=== PATIENT | female | born 1995 | race Caucasian/White ===

== ENCOUNTER 2017-10-17 11:48 | Emergency (ER) | payer OTHER ==
[2017-10-17 12:10] LABS: URINE HCG POC HCG POSITIVE (Negative)
[2017-10-17 12:30] LABS: BILIRUBIN,URINE SMALL (NEG); GLUCOSE,URINE NEGATIVE (NEG); NITRITE,URINE NEGATIVE (NEG); PH,URINE 6.5; PROTEIN,URINE NEGATIVE (NEG-TRACE)
[2017-10-17 12:36] LABS: ADD MAN DIFF? NO
[2017-10-17 12:41] LABS: BASO % 0 % (0-3); EOS % 1 % (0-3); HEMATOCRIT 35.8 % (36.0-47.0); LYMPH # 1.8 x10^3/uL (1.0-4.8); LYMPH % 23 % (24-48); MEAN CORPUSCULAR HEMOGLOBIN 29 pg (25-35); MEAN CORPUSCULAR HGB CONC 34 g/dL (31-37); MEAN CORPUSCULAR VOLUME 87 fL (79-100); MONO % 7 % (0-9); NEUT % 70 % (31-73); PLATELET COUNT 317 x10^3/uL (140-400); RED BLOOD COUNT 4.11 x10^6/uL (3.50-5.40); RED CELL DISTRIBUTION WIDTH 13.4 % (11.5-14.5); WHITE BLOOD COUNT 7.8 x10^3/uL (4.0-11.0)
[2017-10-17 12:43] LABS: BACTERIA,URINE FEW /HPF (0-FEW); SQUAMOUS EPITHELIAL CELL,UR FEW /LPF
[2017-10-17 12:44] LABS: RBC,URINE OCC /HPF (0-2); WBC,URINE OCC /HPF (0-4)
[2017-10-17 12:50] LABS: ANION GAP 8 (6-14); BLOOD UREA NITROGEN 11 mg/dL (7-20); CALCIUM 8.1 mg/dL (8.5-10.1); CARBON DIOXIDE 28 mmol/L (21-32); CHLORIDE 102 mmol/L (98-107); CREATININE 0.5 mg/dL (0.6-1.0); GFR 152.9; GLUCOSE 82 mg/dL (70-99); POTASSIUM 3.2 mmol/L (3.5-5.1); SODIUM 138 mmol/L (136-145)
[2017-10-17] MEDS: POTASSIUM CHLORIDE 20 MEQ TABLET.ER. PO (14:32)
[2017-10-18 16:13] LABS: CHLAMYDIA PROBE Negative (Negative)
== END 2017-10-17 14:54 | disposition home or self-care (01) ==
LOC: ER 11:48
DX: O26.891 Other specified pregnancy related conditions, first trimester (principal); R10.32 Left lower quadrant pain; O99.341 Other mental disorders complicating pregnancy, first trimester; F41.9 Anxiety disorder, unspecified; F32.9 Major depressive disorder, single episode, unspecified; Z3A.11 11 weeks gestation of pregnancy; Z88.5 Allergy status to narcotic agent
CPT/HCPCS: 36415; 76801; 80048; 81001; 81025; 85025; 86900; 86901; 87491; 87591; 99285-25; Q0111

== ENCOUNTER → 2017-12-25 | Outpatient (CLI) | payer OTHER | END | disposition home or self-care (01) | LOC: US 08:06 | DX: O32.1XX0 Maternal care for breech presentation, not applicable or unspecified (principal); O26.842 Uterine size-date discrepancy, second trimester; Z3A.21 21 weeks gestation of pregnancy | CPT/HCPCS: 76805 ==

== ENCOUNTER 2018-04-15 20:28 | Inpatient (IN) | payer OTHER ==
[2018-04-15 21:10] LABS: BILIRUBIN,URINE MODERATE (NEG); CLARITY,URINE CLEAR; COLOR,URINE ORANGE; GLUCOSE,URINE 100 mg/dL (NEG); NITRITE,URINE NEGATIVE (NEG); PROTEIN,URINE 30 mg/dL (NEG-TRACE)
[2018-04-15 21:15] LABS: BACTERIA,URINE MANY /HPF (0-FEW); SQUAMOUS EPITHELIAL CELL,UR MANY /LPF
[2018-04-15 21:32] LABS: AMPHETAMINE/METHAMPHETAMINE NEG (NEG); BARBITURATES NEG (NEG); BENZODIAZEPINES NEG (NEG); CANNABINOIDS NEG (NEG); COCAINE NEG (NEG); ETHANOL, URINE NEG (NEG); METHADONE NEG (NEG); OPIATES NEG (NEG); PHENCYCLIDINE NEG (NEG)
[2018-04-15] MEDS: fentaNYL PF VIAL 100 MCG/2 ML VIAL IV (22:13)
[2018-04-15] MEDS: IV RINGERS,LACTATED 1000ML 1,000 ML IV ×3 (22:15→23:22)
[2018-04-15] MEDS ORDERED: OXYTOCIN PREMIX 30 UNIT/500 ML BAG. IV (23:00)
[2018-04-15] MEDS ORDERED: LIDOCAINE 1% PF 30 ML VIAL. (23:16)
[2018-04-15] MEDS ORDERED: OXYTOCIN 30 UNIT/500 ML PREMIX 500 ML IV ×2 (23:17→23:30)
[2018-04-15] MEDS ORDERED: LIDOCAINE 1% PF 30 ML VIAL. INJ (23:30)
[2018-04-15] MEDS ORDERED: 0.9 % SODIUM CHLORIDE 10 ML DISP.SYRIN. IV (23:30)
[2018-04-15] MEDS ORDERED: ONDANSETRON PF 4 MG/2 ML VIAL. IV (23:30)
[2018-04-15] MEDS ORDERED: fentaNYL PF VIAL 100 MCG/2 ML VIAL IV (23:30)
[2018-04-15] MEDS ORDERED: IBUPROFEN 800 MG TABLET. PO (23:30)
[2018-04-15] MEDS ORDERED: TERBUTALINE 1 MG/ML VIAL. SQ (23:30)
[2018-04-15 23:45] LABS: ADD MAN DIFF? NO
[2018-04-15 23:47] LABS: BASO # 0.1 x10^3/uL (0.0-0.2); BASO % 1 % (0-3); EOS % 0 % (0-3); HEMATOCRIT 28.1 % (36.0-47.0); HEMOGLOBIN 9.2 g/dL (12.0-15.5); LYMPH # 1.9 x10^3/uL (1.0-4.8); LYMPH % 18 % (24-48); MEAN CORPUSCULAR HEMOGLOBIN 22 pg (25-35); MEAN CORPUSCULAR HGB CONC 33 g/dL (31-37); MEAN CORPUSCULAR VOLUME 68 fL (79-100); MONO # 0.7 x10^3/uL (0.0-1.1); MONO % 7 % (0-9); NEUT # 7.7 x10^3uL (1.8-7.7); NEUT % 74 % (31-73); PLATELET COUNT 263 x10^3/uL (140-400); RED BLOOD COUNT 4.13 x10^6/uL (3.50-5.40); RED CELL DISTRIBUTION WIDTH 17.5 % (11.5-14.5); WHITE BLOOD COUNT 10.4 x10^3/uL (4.0-11.0)
[2018-04-16] MEDS: PENICILLIN G K 5,000,000 UNIT in IV NORMAL SALINE 100ML 100 ML IV
[2018-04-16] MEDS ORDERED: 0.9 % SODIUM CHLORIDE 10 ML DISP.SYRIN. IV (00:15)
[2018-04-16] MEDS ORDERED: MMR per PROTOCOL. MC (00:15)
[2018-04-16] MEDS ORDERED: PHENYLEPH/MINERAL OIL/PETROLAT RECTAL OINTMENT 28GM TUBE. RC (00:15)
[2018-04-16] MEDS ORDERED: SIMETHICONE 80 MG TAB.CHEW PO (00:15)
[2018-04-16] MEDS ORDERED: ACETAMINOPHEN 325 MG TABLET. PO (00:15)
[2018-04-16] MEDS ORDERED: MAGNESIUM HYDROXIDE 2,400 MG/30 ML ORAL.SUSP. PO (00:15)
[2018-04-16] MEDS ORDERED: OXYTOCIN 30 UNIT/500 ML PREMIX 500 ML IV (00:15)
[2018-04-16] MEDS ORDERED: ZOLPIDEM 5 MG TABLET. PO (00:15)
[2018-04-16] MEDS ORDERED: diphenhydrAMINE HCL 25 MG CAPSULE PO (00:15)
[2018-04-16] MEDS ORDERED: HYDROCORTISONE 1% TOPICAL OINTMENT 30GM TUBE. TP (00:15)
[2018-04-16] MEDS ORDERED: MAG HYDROX/ALUMINUM HYD/SIMETH 30 ML ORAL.SUSP PO (00:15)
[2018-04-16] MEDS: FUROSEMIDE 20 MG TABLET PO ×2 (01:05→12:26)
[2018-04-16] MEDS: BENZOCAINE 20% TOPICAL AEROSOL SPRAY 57GM CAN. TP (01:28)
[2018-04-16] MEDS: IBUPROFEN 800 MG TABLET. PO ×2 (01:28→14:20)
[2018-04-16 03:50] LABS: ANISOCYTOSIS SLIGHT; HYPOCHROMIA MARKED; MICROCYTOSIS SLIGHT; PLT ESTIMATE ADEQUATE (ADEQUATE); POLYCHROMASIA SLIGHT
[2018-04-16] MEDS: IV RINGERS,LACTATED 1000ML 1,000 ML IV ×3 (06:00→23:19)
[2018-04-16] MEDS: DOCUSATE SODIUM 100 MG CAPSULE. PO ×2 (08:36→20:37)
[2018-04-16 18:30] LABS: ANION GAP 6 (6-14); BLOOD UREA NITROGEN 9 mg/dL (7-20); CALCIUM 8.1 mg/dL (8.5-10.1); CARBON DIOXIDE 27 mmol/L (21-32); CHLORIDE 107 mmol/L (98-107); CREATININE 0.7 mg/dL (0.6-1.0); GFR 102.8; GLUCOSE 114 mg/dL (70-99); POTASSIUM 4.1 mmol/L (3.5-5.1); SODIUM 140 mmol/L (136-145)
[2018-04-16] MEDS: DULoxetine HCL 30 MG CAPSULE.DR PO (20:37)
[2018-04-17] MEDS: IBUPROFEN 800 MG TABLET. PO (02:12)
[2018-04-17 04:57] LABS: ADD MAN DIFF? NO
[2018-04-17 04:58] LABS: BASO # 0.1 x10^3/uL (0.0-0.2); BASO % 1 % (0-3); EOS # 0.1 x10^3/uL (0.0-0.7); EOS % 1 % (0-3); HEMATOCRIT 27.1 % (36.0-47.0); HEMOGLOBIN 8.7 g/dL (12.0-15.5); LYMPH % 23 % (24-48); MEAN CORPUSCULAR HEMOGLOBIN 22 pg (25-35); MEAN CORPUSCULAR HGB CONC 32 g/dL (31-37); MEAN CORPUSCULAR VOLUME 70 fL (79-100); MONO # 0.7 x10^3/uL (0.0-1.1); MONO % 8 % (0-9); NEUT # 5.8 x10^3uL (1.8-7.7); NEUT % 67 % (31-73); PLATELET COUNT 234 x10^3/uL (140-400); RED BLOOD COUNT 3.87 x10^6/uL (3.50-5.40); RED CELL DISTRIBUTION WIDTH 17.1 % (11.5-14.5); WHITE BLOOD COUNT 8.7 x10^3/uL (4.0-11.0)
[2018-04-17] MEDS: FERROUS SULFATE 325 MG TABLET. PO ×2 (08:40→17:39)
[2018-04-17] MEDS: DOCUSATE SODIUM 100 MG CAPSULE. PO (08:40)
[2018-04-17] MEDS: FUROSEMIDE 20 MG TABLET PO (12:41)
[2018-04-17] MEDS: DIPHTH,PERTUSS(ACELL),TET TOX 0.5 ML DISP.SYRIN. VAX IM (17:44)
== END 2018-04-17 18:32 | disposition home or self-care (01) | DRG 775 ==
LOC: 3 SO LND 20:28 → 3 NORTH 04-16 02:15
PROC: 10E0XZZ Delivery of Products of Conception, External Approach (ICD-10-PCS; principal; 2018-04-15)
DX: O69.81X0 Labor and delivery complicated by cord around neck, without compression, not applicable or unspecified (principal); Z37.0 Single live birth; Z3A.37 37 weeks gestation of pregnancy
CPT/HCPCS: 36415; 76815; 80048; 80307; 81001; 85025; 86592; 87086; 90715; J2590; J3010; J7120

== ENCOUNTER 2019-03-19 13:14 | Inpatient (IN) | payer OTHER ==
[~2019-03-19] VITALS: Ht 162.6 cm; Wt 69.4 kg
[~2019-03-19 13:14] MED LIST: ASCO500T PO; CETI10TA22 PO; CHOL200027 PO; DOCU-109 PO; IBUP-1060 PO; MULT1TAB52 PO; NITR100C62 PO; OXYC1TAB15 PO; PREN1TAB54 PO
[2019-03-19] MEDS ORDERED: fentaNYL PF VIAL 100 MCG/2 ML VIAL IV ONE (14:00)
[2019-03-19] MEDS ORDERED: CLINDAMYCIN 600MG PREMIX 50 ML IV ONE (14:00)
[2019-03-19] MEDS ORDERED: IV NORMAL SALINE 1000ML BAG 1,000 ML IV ONE (14:00)
[2019-03-19] MEDS ORDERED: ONDANSETRON PF 4 MG/2 ML VIAL. IV ONE (14:00)
--- NOTE | 2019-03-19 14:03 | PHYS DOC ---
Past Medical History Past Medical History: Anxiety, Depression, Other Additional Past Medical Histor: CELLULITIS Past Surgical History: Tonsillectomy, Other Additional Past Surgical Histo: Gastric Sleeve Additional Information: 0.5 PPD Alcohol Use: Occasionally Drug Use: None Adult General Chief Complaint Chief Complaint: CELLULITIS HPI HPI Patient is a 23 year old female who presents with redness and swelling of her left forearm. Started on Monday morning when she woke up. She went to an urgent care on Monday when it got worse. They prescribed her Bactrim and gave her a shot of Rocephin. The redness has continued to grow worse and is streaking up her left upper arm. Patient rates her pain as 6 out of 10 and burning. Denies any associated symptoms. She has been icing it at home and has been taking her Bactrim. Review of Systems Review of Systems Constitutional: Denies fever or chills [] Eyes: Denies change in visual acuity, redness, or eye pain [] HENT: Denies nasal congestion or sore throat [] Respiratory: Denies cough or shortness of breath [] Cardiovascular: No additional information not addressed in HPI [] GI: Denies abdominal pain, nausea, vomiting, bloody stools or diarrhea [] : Denies dysuria or hematuria [] Musculoskeletal: Denies back pain or joint pain [] Integument: Denies rash or skin lesions with exception of swelling, erythema, and streaking on her left arm. Neurologic: Denies headache, focal weakness or sensory changes [] Endocrine: Denies polyuria or polydipsia [] Complete systems were reviewed and found to be within normal limits, except as documented in this note. Current Medications Current Medications Current Medications Medications (Trade) Dose Ordered Sig/[place] Start Time Stop Time Status Last Admin Dose Admin Clindamycin Phosphate 50 ml @ 100 mls/hr 1X ONCE 03/19/19 14:00 03/19/19 14:29 DC 03/19/19 14:35 100 MLS/HR Fentanyl Citrate (Fentanyl 2ml Vial) 50 mcg 1X ONCE 03/19/19 14:00 03/19/19 14:01 DC 03/19/19 14:16 50 MCG Ondansetron HCl (Zofran) 4 mg 1X ONCE 03/19/19 14:00 03/19/19 14:01 DC 03/19/19 14:16 4 MG Sodium Chloride 1,000 ml @ 1,000 mls/hr 1X ONCE 03/19/19 14:00 03/19/19 14:59 03/19/19 14:15 1,000 MLS/HR Allergies Allergies Allergies Coded Allergies Type Severity Reaction Last Updated Verified morphine Allergy Mild vomiting 12/15/15 Yes Physical Exam Physical Exam Constitutional: Well developed, well nourished, no acute distress, non-toxic appearance. [] HENT: Normocephalic, atraumatic, bilateral external ears normal, oropharynx moist, no oral exudates, nose normal. [] Eyes: PERRLA, EOMI, conjunctiva normal, no discharge. [] Neck: Normal range of motion, no tenderness, supple, no stridor. [] Cardiovascular:Heart rate regular rhythm, no murmur [] Lungs & Thorax: Bilateral breath sounds clear to auscultation [] Abdomen: Bowel sounds normal, soft, no tenderness, no masses, no pulsatile masses. [] Skin: Warm, dry, no erythema, no rash with exception of area on the upper forearm that is erythematous, hot to touch, and streaking up her upper arm. Back: No tenderness, no CVA tenderness. [] Extremities: No tenderness, no cyanosis, no clubbing, ROM intact, no edema. [] Neurologic: Alert and oriented X 3, normal motor function, normal sensory function, no focal deficits noted. [] Psychologic: Affect normal, judgement normal, mood normal. [] Current Patient Data Vital Signs Vital Signs Date Time Temp Pulse Resp B/P (MAP) Pulse Ox O2 Delivery O2 Flow Rate FiO2 03/19/19 14:16 16 99 Room Air 03/19/19 13:39 98.7 103 144/61 (88) 98.7 Lab Values Laboratory Tests Test 03/19/19 13:55 03/19/19 14:03 Urine Collection Type Unknown Urine Color Yellow Urine Clarity Cloudy Urine pH 7.5 Urine Specific [place] 1.025 Urine Protein 30 mg/dL (NEG-TRACE) Urine Glucose (UA) Negative mg/dL (NEG) Urine Ketones (Stick) Negative mg/dL (NEG) Urine Blood Moderate (NEG) Urine Nitrite Negative (NEG) Urine Bilirubin Negative (NEG) Urine Urobilinogen Dipstick 1.0 mg/dL (0.2 mg/dL) Urine Leukocyte Esterase Negative (NEG) Urine RBC 11-20 /HPF (0-2) Urine WBC Rare /HPF (0-4) Urine Squamous Epithelial Cells Mod /LPF Urine Bacteria Few /HPF (0-FEW) Urine Mucus Marked /LPF White Blood Count 11.1 x10^3/uL (4.0-11.0) H Red Blood Count 5.10 x10^6/uL (3.50-5.40) Hemoglobin 12.7 g/dL (12.0-15.5) Hematocrit 40.1 % (36.0-47.0) Mean Corpuscular Volume 79 fL (79-100) Mean Corpuscular Hemoglobin 25 pg (25-35) Mean Corpuscular Hemoglobin Concent 32 g/dL (31-37) Red Cell Distribution Width 15.7 % (11.5-14.5) H Platelet Count 451 x10^3/uL (140-400) H Neutrophils (%) (Auto) 79 % (31-73) H Lymphocytes (%) (Auto) 12 % (24-48) L Monocytes (%) (Auto) 7 % (0-9) Eosinophils (%) (Auto) 1 % (0-3) Basophils (%) (Auto) 1 % (0-3) Neutrophils # (Auto) 8.8 x10^3uL (1.8-7.7) H Lymphocytes # (Auto) 1.3 x10^3/uL (1.0-4.8) Monocytes # (Auto) 0.8 x10^3/uL (0.0-1.1) Eosinophils # (Auto) 0.1 x10^3/uL (0.0-0.7) Basophils # (Auto) 0.1 x10^3/uL (0.0-0.2) POC Urine HCG, Qualitative Hcg negative (Negative) Sodium Level 142 mmol/L (136-145) Potassium Level 4.2 mmol/L (3.5-5.1) Chloride Level 103 mmol/L (98-107) Carbon Dioxide Level 27 mmol/L (21-32) Anion Gap 12 (6-14) Blood Urea Nitrogen 15 mg/dL (7-20) Creatinine 1.0 mg/dL (0.6-1.0) Estimated GFR (Cockcroft-Gault) 68.1 BUN/Creatinine Ratio 15 (6-20) Glucose Level 92 mg/dL (70-99) Lactic Acid Level 0.9 mmol/L (0.4-2.0) Calcium Level 9.7 mg/dL (8.5-10.1) Total Bilirubin 0.3 mg/dL (0.2-1.0) Aspartate Amino Transferase (AST) 19 U/L (15-37) Alanine Aminotransferase (ALT) 22 U/L (14-59) Alkaline Phosphatase 59 U/L (46-116) Total Protein 7.8 g/dL (6.4-8.2) Albumin 4.1 g/dL (3.4-5.0) Albumin/Globulin Ratio 1.1 (1.0-1.7) Laboratory Tests 03/19/19 14:03 Laboratory Tests 03/19/19 14:03 EKG EKG [] Radiology/Procedures Radiology/Procedures [] Course & Med Decision Making Course & Med Decision Making Pertinent Labs and Imaging studies reviewed. (See chart for details) Patient appears to have Cellulitis that has failed outpatient therapy. Will order Clindamycin, Labs, Pain medication and then admit the patient to the hospital. The patient is agreeable. Talked to Dr. Ibrahim. Will admit to hospital. Dragon Disclaimer Dragon Disclaimer This electronic medical record was generated, in whole or in part, using a voice recognition dictation system. Departure Departure Impression: Primary Impression: Cellulitis Disposition: 09 ADMITTED INPATIENT Admitting Physician: Rupinder Ibrahim Condition: STABLE Referrals: RUMA FELIX Jr, MD (PCP) Problem Qualifiers Primary Impression: Cellulitis Site of cellulitis of extremity: upper extremity Laterality: left DEANNE MEEHAN [employer] HELPER March 19, 2019 14:03
[2019-03-19 14:08] LABS: BILIRUBIN,URINE NEGATIVE (NEG); CLARITY,URINE CLOUDY; COLOR,URINE YELLOW; NITRITE,URINE NEGATIVE (NEG); PH,URINE 7.5; PROTEIN,URINE 30 mg/dL (NEG-TRACE)
[2019-03-19 14:14] LABS: BASO # 0.1 x10^3/uL (0.0-0.2); BASO % 1 % (0-3); EOS # 0.1 x10^3/uL (0.0-0.7); EOS % 1 % (0-3); HEMATOCRIT 40.1 % (36.0-47.0); HEMOGLOBIN 12.7 g/dL (12.0-15.5); LYMPH # 1.3 x10^3/uL (1.0-4.8); LYMPH % 12 % (24-48); MEAN CORPUSCULAR HEMOGLOBIN 25 pg (25-35); MEAN CORPUSCULAR HGB CONC 32 g/dL (31-37); MEAN CORPUSCULAR VOLUME 79 fL (79-100); MONO # 0.8 x10^3/uL (0.0-1.1); MONO % 7 % (0-9); NEUT # 8.8 x10^3uL (1.8-7.7); NEUT % 79 % (31-73); PLATELET COUNT 451 x10^3/uL (140-400); RED CELL DISTRIBUTION WIDTH 15.7 % (11.5-14.5); WHITE BLOOD COUNT 11.1 x10^3/uL (4.0-11.0)
[2019-03-19 14:21] LABS: BACTERIA,URINE FEW /HPF (0-FEW); SQUAMOUS EPITHELIAL CELL,UR MOD /LPF; WBC,URINE RARE /HPF (0-4)
[2019-03-19 14:23] LABS: CALCIUM 9.7 mg/dL (8.5-10.1); GFR 68.1; POTASSIUM 4.2 mmol/L (3.5-5.1)
[2019-03-19 14:29] LABS: ALBUMIN 4.1 g/dL (3.4-5.0); ALBUMIN/GLOBULIN RATIO 1.1 (1.0-1.7); TOTAL BILIRUBIN 0.3 mg/dL (0.2-1.0); TOTAL PROTEIN 7.8 g/dL (6.4-8.2)
[2019-03-19] MEDS ORDERED: ONDANSETRON PF 4 MG/2 ML VIAL. IV PRN (14:45)
[2019-03-19 15:30] VITALS: BP 105/63
[2019-03-19] MEDS: fentaNYL PF VIAL 100 MCG/2 ML VIAL IV PRN ×2 (16:48→21:29)
[2019-03-19] MEDS ORDERED: NON FORMULARY ITEM (Ibuprofen 800 MG) PO PRN (17:15)
[2019-03-19] MEDS ORDERED: DOCUSATE SODIUM 100 MG CAPSULE. PO PRN (17:15)
[2019-03-19] MEDS ORDERED: oxyCODONE/APAP 5/325 1 TAB TABLET PO PRN (17:15)
[2019-03-19] MEDS ORDERED: ALPRAZolam 0.5 MG TABLET PO PRN (18:00)
[2019-03-19 19:00] VITALS: BP 93/46
--- NOTE | 2019-03-19 19:38 | PDOC1 ---
History and Physical Date of Admission Date of Admission DATE: 03/19/19 TIME: 19:33 Source Source: Chart review, Patient History of Present Illness History of Present Illness Ms. Carter, is a 23 year old female admit from ER with acute redness and swelling of her left forearm. 4 days prior she woke up with a small spot on her arm, where she feels like she got a bug bite when sleeping, urgent care on Monday started her on Bactrim - and the pain has gotten worse with swelling and streaking up her left upper arm. [pain was 6/10, better after meds given she works at [employer]. Past Medical History Cardiovascular: No pertinent hx Pulmonary: No pertinent hx Heme/Onc: No pertinent hx Hepatobiliary: No pertinent hx Psych: Anxiety, Addictions Endocrine: No pertinent hx Dermatology: No pertinent hx Para: 2 Family History Family History: No Significant Family History: Parent, Grandparents Social History Smoke: <1 pack per day ALCOHOL: rare Drugs: None Current Problem List Problem List Problems Medical Problems: (1) Cellulitis Status: Acute Current Medications Current Medications Current Medications Ondansetron HCl (Zofran) 4 mg 1X ONCE IV Last administered on 03/19/19at 14:16; Start 03/19/19 at 14:00; Stop 03/19/19 at 14:01; Status DC Fentanyl Citrate (Fentanyl 2ml Vial) 50 mcg 1X ONCE IV Last administered on 03/19/19at 14:16; Start 03/19/19 at 14:00; Stop 03/19/19 at 14:01; Status DC Clindamycin Phosphate 50 ml @ 100 mls/hr 1X ONCE IV Last administered on 03/19/19at 14:35; Start 03/19/19 at 14:00; Stop 03/19/19 at 14:29; Status DC Sodium Chloride 1,000 ml @ 1,000 mls/hr 1X ONCE IV Last administered on 03/19/19at 14:15; Start 03/19/19 at 14:00; Stop 03/19/19 at 14:59; Status DC Ondansetron HCl (Zofran) 4 mg PRN Q8HRS PRN IV NAUSEA/VOMITING; Start 03/19/19 at 14:45; Stop 03/20/19 at 14:44 Fentanyl Citrate (Fentanyl 2ml Vial) 50 mcg PRN Q1HR PRN IV PAIN Last administered on 03/19/19at 16:48; Start 03/19/19 at 14:45; Stop 03/20/19 at 14:44 Cetirizine HCl (ZyrTEC) 10 mg DAILY PO ; Start 03/20/19 at 09:00 Docusate Sodium (Colace) 100 mg PRN BID PRN PO CONSTIPATION 1ST CHOICE; Start 03/19/19 at 17:15 Oxycodone/ Acetaminophen (Percocet 5/325) 1 tab PRN Q4HRS PRN PO MODERATE TO SEVERE PAIN; Start 03/19/19 at 17:15 Ascorbic Acid (Vitamin C) 500 mg BID PO ; Start 03/19/19 at 21:00 Vitamin D (Vitamin D3) 2,000 unit DAILY PO ; Start 03/20/19 at 09:00 Non-Formulary Medication (Ibuprofen ) 800 mg PRN Q8HRS PRN PO INFLAMMATION/PAIN PREVENTION; Start 03/19/19 at 17:15; Stop 03/19/19 at 17:21; Status DC Multivitamins (Thera M Plus) 1 tab DAILY PO ; Start 03/20/19 at 09:00 Ibuprofen (Motrin) 800 mg PRN Q8HRS PRN PO INFLAMMATION/PAIN; Start 03/19/19 at 17:30 Duloxetine HCl (Cymbalta) 90 mg DAILY PO ; Start 03/20/19 at 09:00 Alprazolam (Xanax) 0.5 mg PRN Q8HRS PRN PO ANXIETY / AGITATION; Start 03/19/19 at 18:00 Active Scripts Active Ibuprofen 800 Mg Tablet 800 Mg PO PRN Q8HRS PRN Macrobid 100 Mg Capsule (Nitrofurantoin Monohyd/M-Cryst) 100 Mg Capsule 1 Cap PO BID Percocet 5-325 Mg Tablet (Oxycodone/Acetaminophen) 1 Each Tablet 1-2 Tab PO Q4-6HRS Colace (Docusate Sodium) 100 Mg Capsule 100 Mg PO PRN BID PRN Reported Multivitamins (Multivitamin) 1 Each Tablet 1 Tab PO DAILY Vitamin C (Ascorbic Acid) 500 Mg Tab.chew 500 Mg PO BID Zyrtec (Cetirizine Hcl) 10 Mg Tablet 1 Tab PO DAILY Vitamin D3 (Cholecalciferol (Vitamin D3)) 2,000 Unit Tablet 2,000 Unit PO DAILY Formula ( Vits W-Ca,Fe,Fa(<1MG)) 1 Each Tablet 1 Each PO Allergies Allergies: Coded Allergies: morphine (Verified Allergy, Mild, vomiting, 12/15/15) ROS General: YES: Fatigue; No: Chills, Night Sweats, Malaise, Appetite, Other PSYCHOLOGICAL ROS: YES: Anxiety, Sleep disturbances; No: Behavioral Disorder, Concentration difficultie, Decreased libido, Depression, Disorientation, Hallucinations, Hostility, Irritablity, Memory difficulties, Mood Swings, Obsessive thoughts, Suicidal ideation, Other Eyes: No Blurry vision, No Decreased vision, No Double vision, No Dry eyes, No Excessive tearing, No Eye Pain, No Itchy Eyes, No Loss of vision, No Photophobia, No Scotomata, No Uses contacts, No Uses glasses, No Other HEENT: No: Heacaches, Visual Changes, Hearing change, Nasal congestion, Nasal discharge, Oral lesions, Sinus pain, Sore Throat, Epistaxis, Sneezing, Snoring, Tinnitus, Vertigo, Vocal changes, Other Respiratory: No: Cough, Hemoptysis, Orthopnea, Pleuritic Pain, Shortness of breath, SOB with excertion, Sputum Changes, Stridor, Tachypnea, Wheezing, Other Cardiovascular: No Chest Pain, No Palpitations, No Orthopnea, No Paroxysmal Noc. Dyspnea, No Edema, No Lt Headedness, No Other Gastrointestinal: No Nausea, No Vomiting, No Abdominal Pain, No Diarrhea, No Constipation, No Melena, No Hematochezia, No Other Genitourinary: No Dysuria, No Frequency, No Incontinence, No Hematuria, No Retention, No Discharge, No Urgency, No Pain, No Flank Pain, No Other, No , No , No , No , No , No , No Neurological: No Behavorial Changes, No Bowel/Bladder ControlChng, No Confusion, No Dizziness, No Gait Disturbance, No Headaches, No Impaired Coord/balance, No Memory Loss, No Numbness/Tingling, No Seizures, No Speech Problems, No Tremors, No Visual Changes, No Weakness, No Other Skin: Yes Dry Skin, Yes Rash, Yes Skin Lesion Changes, Yes Other Physical Exam General: Alert, Oriented X3, mild distress HEENT: Atraumatic, PERRLA, EOMI, Mucous membr. moist/pink Lungs: Clear to auscultation, Normal air movement Heart: S1S2, no murmurs Abdomen: Normal bowel sounds, Soft Extremities: No cyanosis, Other (1+ edema left arm) Skin: Other (streaky cellulitis to left arm, marked, ) Neuro: Normal speech, Strength at 5/5 X4 ext, Normal tone, Sensation intact, Other (some areas of clearing to left arm, ) Psych/Mental Status: Mental status NL, Mood NL, Other Vitals Vitals Vital Signs Date Time Temp Pulse Resp B/P (MAP) Pulse Ox O2 Delivery O2 Flow Rate FiO2 03/19/19 17:32 Room Air 03/19/19 15:30 98.0 71 18 105/63 (77) 99 98.0 Labs Labs Laboratory Tests Test 03/19/19 13:55 03/19/19 14:03 Urine Collection Type Unknown Urine Color Yellow Urine Clarity Cloudy Urine pH 7.5 Urine Specific [place] 1.025 Urine Protein 30 mg/dL (NEG-TRACE) Urine Glucose (UA) Negative mg/dL (NEG) Urine Ketones (Stick) Negative mg/dL (NEG) Urine Blood Moderate (NEG) Urine Nitrite Negative (NEG) Urine Bilirubin Negative (NEG) Urine Urobilinogen Dipstick 1.0 mg/dL (0.2 mg/dL) Urine Leukocyte Esterase Negative (NEG) Urine RBC 11-20 /HPF (0-2) Urine WBC Rare /HPF (0-4) Urine Squamous Epithelial Cells Mod /LPF Urine Bacteria Few /HPF (0-FEW) Urine Mucus Marked /LPF White Blood Count 11.1 x10^3/uL (4.0-11.0) Red Blood Count 5.10 x10^6/uL (3.50-5.40) Hemoglobin 12.7 g/dL (12.0-15.5) Hematocrit 40.1 % (36.0-47.0) Mean Corpuscular Volume 79 fL (79-100) Mean Corpuscular Hemoglobin 25 pg (25-35) Mean Corpuscular Hemoglobin Concent 32 g/dL (31-37) Red Cell Distribution Width 15.7 % (11.5-14.5) Platelet Count 451 x10^3/uL (140-400) Neutrophils (%) (Auto) 79 % (31-73) Lymphocytes (%) (Auto) 12 % (24-48) Monocytes (%) (Auto) 7 % (0-9) Eosinophils (%) (Auto) 1 % (0-3) Basophils (%) (Auto) 1 % (0-3) Neutrophils # (Auto) 8.8 x10^3uL (1.8-7.7) Lymphocytes # (Auto) 1.3 x10^3/uL (1.0-4.8) Monocytes # (Auto) 0.8 x10^3/uL (0.0-1.1) Eosinophils # (Auto) 0.1 x10^3/uL (0.0-0.7) Basophils # (Auto) 0.1 x10^3/uL (0.0-0.2) Bedside Urine HCG, Qualitative Hcg negative (Negative) Sodium Level 142 mmol/L (136-145) Potassium Level 4.2 mmol/L (3.5-5.1) Chloride Level 103 mmol/L (98-107) Carbon Dioxide Level 27 mmol/L (21-32) Anion Gap 12 (6-14) Blood Urea Nitrogen 15 mg/dL (7-20) Creatinine 1.0 mg/dL (0.6-1.0) Estimated GFR (Cockcroft-Gault) 68.1 BUN/Creatinine Ratio 15 (6-20) Glucose Level 92 mg/dL (70-99) Lactic Acid Level 0.9 mmol/L (0.4-2.0) Calcium Level 9.7 mg/dL (8.5-10.1) Total Bilirubin 0.3 mg/dL (0.2-1.0) Aspartate Amino Transf (AST/SGOT) 19 U/L (15-37) Alanine Aminotransferase (ALT/SGPT) 22 U/L (14-59) Alkaline Phosphatase 59 U/L (46-116) Total Protein 7.8 g/dL (6.4-8.2) Albumin 4.1 g/dL (3.4-5.0) Albumin/Globulin Ratio 1.1 (1.0-1.7) Laboratory Tests Test 03/19/19 13:55 03/19/19 14:03 Urine Collection Type Unknown Urine Color Yellow Urine Clarity Cloudy Urine pH 7.5 Urine Specific [place] 1.025 Urine Protein 30 mg/dL (NEG-TRACE) Urine Glucose (UA) Negative mg/dL (NEG) Urine Ketones (Stick) Negative mg/dL (NEG) Urine Blood Moderate (NEG) Urine Nitrite Negative (NEG) Urine Bilirubin Negative (NEG) Urine Urobilinogen Dipstick 1.0 mg/dL (0.2 mg/dL) Urine Leukocyte Esterase Negative (NEG) Urine RBC 11-20 /HPF (0-2) Urine WBC Rare /HPF (0-4) Urine Squamous Epithelial Cells Mod /LPF Urine Bacteria Few /HPF (0-FEW) Urine Mucus Marked /LPF White Blood Count 11.1 x10^3/uL (4.0-11.0) Red Blood Count 5.10 x10^6/uL (3.50-5.40) Hemoglobin 12.7 g/dL (12.0-15.5) Hematocrit 40.1 % (36.0-47.0) Mean Corpuscular Volume 79 fL (79-100) Mean Corpuscular Hemoglobin 25 pg (25-35) Mean Corpuscular Hemoglobin Concent 32 g/dL (31-37) Red Cell Distribution Width 15.7 % (11.5-14.5) Platelet Count 451 x10^3/uL (140-400) Neutrophils (%) (Auto) 79 % (31-73) Lymphocytes (%) (Auto) 12 % (24-48) Monocytes (%) (Auto) 7 % (0-9) Eosinophils (%) (Auto) 1 % (0-3) Basophils (%) (Auto) 1 % (0-3) Neutrophils # (Auto) 8.8 x10^3uL (1.8-7.7) Lymphocytes # (Auto) 1.3 x10^3/uL (1.0-4.8) Monocytes # (Auto) 0.8 x10^3/uL (0.0-1.1) Eosinophils # (Auto) 0.1 x10^3/uL (0.0-0.7) Basophils # (Auto) 0.1 x10^3/uL (0.0-0.2) Bedside Urine HCG, Qualitative Hcg negative (Negative) Sodium Level 142 mmol/L (136-145) Potassium Level 4.2 mmol/L (3.5-5.1) Chloride Level 103 mmol/L (98-107) Carbon Dioxide Level 27 mmol/L (21-32) Anion Gap 12 (6-14) Blood Urea Nitrogen 15 mg/dL (7-20) Creatinine 1.0 mg/dL (0.6-1.0) Estimated GFR (Cockcroft-Gault) 68.1 BUN/Creatinine Ratio 15 (6-20) Glucose Level 92 mg/dL (70-99) Lactic Acid Level 0.9 mmol/L (0.4-2.0) Calcium Level 9.7 mg/dL (8.5-10.1) Total Bilirubin 0.3 mg/dL (0.2-1.0) Aspartate Amino Transf (AST/SGOT) 19 U/L (15-37) Alanine Aminotransferase (ALT/SGPT) 22 U/L (14-59) Alkaline Phosphatase 59 U/L (46-116) Total Protein 7.8 g/dL (6.4-8.2) Albumin 4.1 g/dL (3.4-5.0) Albumin/Globulin Ratio 1.1 (1.0-1.7) VTE Prophylaxis Ordered VTE Prophylaxis Devices: No VTE Pharmacological Prophylaxi: Yes Assessment/Plan Assessment/Plan acute left arm pain with acute cellulitis, , clinda started in ER, cont tobacco use disorder anxiety disorder ANGELICA PEDERSON MD March 19, 2019 19:37
[2019-03-19] MEDS ORDERED: NICOTINE POLACRILEX 2MG GUM PACKAGE of 12. BC PRN (19:45)
[2019-03-19] MEDS: ENOXAPARIN 40 MG/0.4 ML SYRINGE. SQ SCH (21:29)
[2019-03-19] MEDS: ASCORBIC ACID 500 MG TABLET PO SCH (21:29)
[2019-03-19 23:00] VITALS: BP 101/51
[2019-03-20 03:00] VITALS: BP 83/39
[2019-03-20 07:00] VITALS: BP 94/48
[2019-03-20] MEDS: CHOLECALCIFEROL (VITAMIN D3) 1,000 UNIT TABLET PO SCH (08:27)
[2019-03-20] MEDS: CETIRIZINE HCL 10 MG TABLET. PO SCH (08:28)
[2019-03-20] MEDS: MULTIVITAMIN with MINERAL TABLET. PO SCH (08:28)
[2019-03-20] MEDS: ASCORBIC ACID 500 MG TABLET PO SCH ×2 (08:28→20:50)
[2019-03-20] MEDS: DULoxetine HCL 30 MG CAPSULE.DR PO SCH (08:28)
[2019-03-20] MEDS: fentaNYL PF VIAL 100 MCG/2 ML VIAL IV PRN (08:39)
[2019-03-20] MEDS ORDERED: VANCOMYCIN PER PHARMACY MC PRN (10:00)
[2019-03-20] MEDS ORDERED: VANCOMYCIN 1.75 GM in IV NORMAL SALINE 500ML BAG 500 ML IV ONE (10:30)
[2019-03-20] MEDS: IBUPROFEN 400 MG TABLET. PO PRN (10:46)
[2019-03-20] MEDS: CLINDAMYCIN 600MG PREMIX 50 ML IV SCH ×3 (10:47→20:50)
[2019-03-20 11:00] VITALS: BP 102/53
--- NOTE | 2019-03-20 12:55 | NUR ---
Pharmacy Vancomycin Dosing Note S:Consulted to monitor and dose vancomycin started 03/20/19. O:CASSIDY ALLAN is a 23 year old F with Cellulitis . Height: 5 feet, 4 inches Weight: 69.034005 kg [place] Body Weight: 54.70 Adjusted Body Weight: Dosing Weight: Actual Other Antibiotics: CLEOCIN LABS: Last BUN: 15 Last Creatinine: 1.0 Creatinine Clearance: 83 mL/min Last WBC: 11.1 Last Procalcitonin: Tmax (past 24 hours): Microbiology: I/O: Drug Levels: Last level: on at Last dose given 03/20/19 at 1100 Vancomycin Dosing: Loading Dose: 1750 mg x1 Dosing Weight: Actual Target Trough: 10-20 A: Based on: WEIGHT AND RENAL FUNCTION, VANCOMYCIN 1.75GM IV BOLUS, THEN P: 1. Begin Vancomycin 1000 mg IV q12h 2. Follow up Trough level on 03/21/19 at 2230 3. Pharmacy will continue to monitor, follow and adjust therapy as needed. GABRIELA CORONADO [facility], 03/20/19 [id number]
--- NOTE | 2019-03-20 14:27 | PDOC ---
PROGRESS NOTES Chief Complaint Chief Complaint left forearm cellulitis tobacco use disorder anxiety disorder. Plan: will continue with clindamycin do MRSA screen will start vanocmycin reassess int he am History of Present Illness History of Present Illness Patient with continued discomfort from her cellulitis. No fever or chills, reassurance provided. Vitals Vitals Vital Signs Date Time Temp Pulse Resp B/P (MAP) Pulse Ox O2 Delivery O2 Flow Rate FiO2 03/20/19 11:46 14 97 Room Air 03/20/19 11:00 98.1 99 102/53 (69) 98.1 Physical Exam Physical Exam Gen.: well-developed well-nourished in no apparent distress Head: Normal shape atraumatic Eyes: Pupils equal reactive to light and accommodation, normal conjunctivae and lids Ears: Normal shape Nose: Normal shape no trauma Mouth: No exudates of the back of throat no thrush no lesions Neck: Supple no JVD no carotid bruit or lymphadenopathy no thyromegaly Chest: Lungs clear to auscultation with good inspiratory effort no crackles rales or rhonchi Cardiovascular: S1-S2 regular rhythm no murmurs gallops or rubs Abdomen: Bowel sounds present soft nontender no hepatosplenomegaly appreciated sign Extremities: No clubbing no cyanosis no edema peripheral pulses palpated bilaterally Neurological: Alert awake oriented in person time place and situation, cranial nerves II through XII intact, no motor or sensory deficits appreciated Psych: Appropriate mood, cooperative General: Alert, Oriented X3, mild distress Abdomen: Normal bowel sounds, Soft Extremities: No cyanosis, Other (1+ edema left arm) Skin: Other (streaky cellulitis to left arm, marked, ) Review of Systems Review of Systems Pertinent as per history of present illness otherwise 14 point review of system is negative Assessment and Plan Assessmemt and Plan Problems Medical Problems: (1) Cellulitis Status: Acute Comment Review of Relevant I have reviewed the following items anette (where applicable) has been applied. Labs Laboratory Tests Test 03/19/19 13:55 03/19/19 14:03 Urine Collection Type Unknown Urine Color Yellow Urine Clarity Cloudy Urine pH 7.5 Urine Specific [place] 1.025 Urine Protein 30 mg/dL (NEG-TRACE) Urine Glucose (UA) Negative mg/dL (NEG) Urine Ketones (Stick) Negative mg/dL (NEG) Urine Blood Moderate (NEG) Urine Nitrite Negative (NEG) Urine Bilirubin Negative (NEG) Urine Urobilinogen Dipstick 1.0 mg/dL (0.2 mg/dL) Urine Leukocyte Esterase Negative (NEG) Urine RBC 11-20 /HPF (0-2) Urine WBC Rare /HPF (0-4) Urine Squamous Epithelial Cells Mod /LPF Urine Bacteria Few /HPF (0-FEW) Urine Mucus Marked /LPF White Blood Count 11.1 x10^3/uL (4.0-11.0) Red Blood Count 5.10 x10^6/uL (3.50-5.40) Hemoglobin 12.7 g/dL (12.0-15.5) Hematocrit 40.1 % (36.0-47.0) Mean Corpuscular Volume 79 fL (79-100) Mean Corpuscular Hemoglobin 25 pg (25-35) Mean Corpuscular Hemoglobin Concent 32 g/dL (31-37) Red Cell Distribution Width 15.7 % (11.5-14.5) Platelet Count 451 x10^3/uL (140-400) Neutrophils (%) (Auto) 79 % (31-73) Lymphocytes (%) (Auto) 12 % (24-48) Monocytes (%) (Auto) 7 % (0-9) Eosinophils (%) (Auto) 1 % (0-3) Basophils (%) (Auto) 1 % (0-3) Neutrophils # (Auto) 8.8 x10^3uL (1.8-7.7) Lymphocytes # (Auto) 1.3 x10^3/uL (1.0-4.8) Monocytes # (Auto) 0.8 x10^3/uL (0.0-1.1) Eosinophils # (Auto) 0.1 x10^3/uL (0.0-0.7) Basophils # (Auto) 0.1 x10^3/uL (0.0-0.2) Bedside Urine HCG, Qualitative Hcg negative (Negative) Sodium Level 142 mmol/L (136-145) Potassium Level 4.2 mmol/L (3.5-5.1) Chloride Level 103 mmol/L (98-107) Carbon Dioxide Level 27 mmol/L (21-32) Anion Gap 12 (6-14) Blood Urea Nitrogen 15 mg/dL (7-20) Creatinine 1.0 mg/dL (0.6-1.0) Estimated GFR (Cockcroft-Gault) 68.1 BUN/Creatinine Ratio 15 (6-20) Glucose Level 92 mg/dL (70-99) Lactic Acid Level 0.9 mmol/L (0.4-2.0) Calcium Level 9.7 mg/dL (8.5-10.1) Total Bilirubin 0.3 mg/dL (0.2-1.0) Aspartate Amino Transf (AST/SGOT) 19 U/L (15-37) Alanine Aminotransferase (ALT/SGPT) 22 U/L (14-59) Alkaline Phosphatase 59 U/L (46-116) Total Protein 7.8 g/dL (6.4-8.2) Albumin 4.1 g/dL (3.4-5.0) Albumin/Globulin Ratio 1.1 (1.0-1.7) Microbiology 03/19/19 Blood Culture - Preliminary, Resulted NO GROWTH AFTER 1 DAY Medications Current Medications Ondansetron HCl (Zofran) 4 mg 1X ONCE IV Last administered on 03/19/19at 14:16; Start 03/19/19 at 14:00; Stop 03/19/19 at 14:01; Status DC Fentanyl Citrate (Fentanyl 2ml Vial) 50 mcg 1X ONCE IV Last administered on 03/19/19at 14:16; Start 03/19/19 at 14:00; Stop 03/19/19 at 14:01; Status DC Clindamycin Phosphate 50 ml @ 100 mls/hr 1X ONCE IV Last administered on 03/19/19at 14:35; Start 03/19/19 at 14:00; Stop 03/19/19 at 14:29; Status DC Sodium Chloride 1,000 ml @ 1,000 mls/hr 1X ONCE IV Last administered on 03/19/19at 14:15; Start 03/19/19 at 14:00; Stop 03/19/19 at 14:59; Status DC Ondansetron HCl (Zofran) 4 mg PRN Q8HRS PRN IV NAUSEA/VOMITING; Start 03/19/19 at 14:45; Stop 03/20/19 at 14:44 Fentanyl Citrate (Fentanyl 2ml Vial) 50 mcg PRN Q1HR PRN IV PAIN Last administered on 03/20/19at 08:39; Start 03/19/19 at 14:45; Stop 03/20/19 at 14:44 Cetirizine HCl (ZyrTEC) 10 mg DAILY PO Last administered on 03/20/19 08:28; Start 03/20/19 at 09:00 Docusate Sodium (Colace) 100 mg PRN BID PRN PO CONSTIPATION 1ST CHOICE; Start 03/19/19 at 17:15 Oxycodone/ Acetaminophen (Percocet 5/325) 1 tab PRN Q4HRS PRN PO MODERATE TO SEVERE PAIN Last administered on 03/20/19 10:46; Start 03/19/19 at 17:15 Ascorbic Acid (Vitamin C) 500 mg BID PO Last administered on 03/20/19 08:28; Start 03/19/19 at 21:00 Vitamin D (Vitamin D3) 2,000 unit DAILY PO Last administered on 03/20/19 08:27; Start 03/20/19 at 09:00 Non-Formulary Medication (Ibuprofen ) 800 mg PRN Q8HRS PRN PO INFLAMMATION/PAIN PREVENTION; Start 03/19/19 at 17:15; Stop 03/19/19 at 17:21; Status DC Multivitamins (Thera M Plus) 1 tab DAILY PO Last administered on 03/20/19 08:28; Start 03/20/19 at 09:00 Ibuprofen (Motrin) 800 mg PRN Q8HRS PRN PO INFLAMMATION/PAIN Last administered on 03/20/19 10:46; Start 03/19/19 at 17:30 Duloxetine HCl (Cymbalta) 90 mg DAILY PO Last administered on 03/20/19at 08:28; Start 03/20/19 at 09:00 Alprazolam (Xanax) 0.5 mg PRN Q8HRS PRN PO ANXIETY / AGITATION; Start 03/19/19 at 18:00 Enoxaparin Sodium (Lovenox Per Pharmacy Prophylaxis Dosing) 1 each PRN DAILY PRN MC SEE COMMENTS; Start 03/19/19 at 19:45 Enoxaparin Sodium (Lovenox 40mg Syringe) 40 mg Q24H SQ Last administered on 03/19/19at 21:29; Start 03/19/19 at 21:00 Nicotine Polacrilex (Nicorette Gum) 1 each PRN Q1HR PRN BC SMOKING CESSATION; Start 03/19/19 at 19:45 Clindamycin Phosphate 50 ml @ 100 mls/hr Q8HRS IV Last administered on 03/20/19at 10:47; Start 03/20/19 at 10:00 Vancomycin HCl (Vanco Per Pharmacy) 1 each PRN DAILY PRN MC SEE COMMENTS Last administered on 03/20/19at 12:26; Start 03/20/19 at 10:00 Vancomycin HCl 1.75 gm/Sodium Chloride 500 ml @ 250 mls/hr 1X ONCE IV Last administered on 03/20/19at 10:48; Start 03/20/19 at 10:30; Stop 03/20/19 at 12:29; Status DC Vancomycin HCl 1 gm/Sodium Chloride 250 ml @ 250 mls/hr Q12H IV ; Start 03/20/19 at 23:00 Vancomycin HCl (Vancomycin Trough Level) 1 each 1X ONCE MC ; Start 03/21/19 at 22:30; Stop 03/21/19 at 22:31 Lactobacillus Rhamnosus (Culturelle) 1 cap BID PO ; Start 03/20/19 at 21:00 Active Scripts Active Ibuprofen 800 Mg Tablet 800 Mg PO PRN Q8HRS PRN Macrobid 100 Mg Capsule (Nitrofurantoin Monohyd/M-Cryst) 100 Mg Capsule 1 Cap PO BID Percocet 5-325 Mg Tablet (Oxycodone/Acetaminophen) 1 Each Tablet 1-2 Tab PO Q4-6HRS Colace (Docusate Sodium) 100 Mg Capsule 100 Mg PO PRN BID PRN Reported Multivitamins (Multivitamin) 1 Each Tablet 1 Tab PO DAILY Vitamin C (Ascorbic Acid) 500 Mg Tab.chew 500 Mg PO BID Zyrtec (Cetirizine Hcl) 10 Mg Tablet 1 Tab PO DAILY Vitamin D3 (Cholecalciferol (Vitamin D3)) 2,000 Unit Tablet 2,000 Unit PO DAILY Formula ( Vits W-Ca,Fe,Fa(<1MG)) 1 Each Tablet 1 Each PO Vitals/I & O Vital Sign - Last 24 Hours 03/19/19 03/19/19 03/19/19 03/19/19 14:37 14:41 14:46 15:11 Pulse 72 64 Resp 16 17 B/P (MAP) 112/60 (77) 110/62 (78) 112/63 (79) Pulse Ox 98 96 98 O2 Delivery Room Air Room Air Room Air Room Air 03/19/19 03/19/19 03/19/19 03/19/19 15:30 16:48 17:01 19:00 Temp 98.0 98.2 98.0 98.2 Pulse 71 68 Resp 18 18 B/P (MAP) 105/63 (77) 93/46 (62) Pulse Ox 99 98 O2 Delivery Room Air Room Air Room Air Room Air 03/19/19 03/19/19 03/19/19 03/20/19 20:00 21:29 23:00 03:00 Temp 98.3 98.3 98.3 98.3 Pulse 75 77 Resp 18 18 B/P (MAP) 101/51 (68) 83/39 (54) Pulse Ox 98 99 O2 Delivery Room Air Room Air Room Air Room Air 03/20/19 03/20/19 03/20/19 03/20/19 07:00 08:39 09:09 10:46 Temp 98.6 98.6 Pulse 67 Resp 18 16 16 B/P (MAP) 94/48 (63) Pulse Ox 97 97 97 97 O2 Delivery Room Air Room Air Room Air Room Air 03/20/19 03/20/19 11:00 11:46 Temp 98.1 98.1 Pulse 99 Resp 18 14 B/P (MAP) 102/53 (69) Pulse Ox 97 97 O2 Delivery Room Air Room Air l Intake and Output 03/19/19 03/19/19 03/20/19 15:00 23:00 07:00 Intake Total 1350 ml Balance 1350 ml KELLY CONNORS MD March 20, 2019 14:27
[2019-03-20 15:00] VITALS: BP 101/50
--- NOTE | 2019-03-20 16:19 | NUR ---
Patient care transferred to ERIN Lynne.
[2019-03-20 19:00] VITALS: BP 107/55
[2019-03-20] MEDS: LACTOBACILLUS RHAMNOSUS GG 1 CAPSULE. PO SCH (20:50)
[2019-03-20] MEDS: ENOXAPARIN 40 MG/0.4 ML SYRINGE. SQ SCH (20:50)
[2019-03-20] MEDS: VANCOMYCIN 1 GM in IV NORMAL SALINE 250ML 250 ML IV SCH (22:06)
[2019-03-20 23:00] VITALS: BP 93/53
[2019-03-21 03:00] VITALS: BP 115/59
[2019-03-21] MEDS: CLINDAMYCIN 600MG PREMIX 50 ML IV SCH (05:53)
[2019-03-21 07:00] VITALS: BP 98/52
[2019-03-21] MEDS: LACTOBACILLUS RHAMNOSUS GG 1 CAPSULE. PO SCH ×2 (08:15→20:59)
[2019-03-21] MEDS: DULoxetine HCL 30 MG CAPSULE.DR PO SCH (08:15)
[2019-03-21] MEDS: CETIRIZINE HCL 10 MG TABLET. PO SCH (08:15)
[2019-03-21] MEDS: MULTIVITAMIN with MINERAL TABLET. PO SCH (08:15)
[2019-03-21] MEDS: ASCORBIC ACID 500 MG TABLET PO SCH ×2 (08:15→20:59)
[2019-03-21] MEDS: CHOLECALCIFEROL (VITAMIN D3) 1,000 UNIT TABLET PO SCH (08:16)
[2019-03-21] MEDS: IBUPROFEN 400 MG TABLET. PO PRN (08:40)
[2019-03-21 11:00] VITALS: BP 113/51
[2019-03-21] MEDS: VANCOMYCIN 1 GM in IV NORMAL SALINE 250ML 250 ML IV SCH (11:28)
--- NOTE | 2019-03-21 12:28 | PDOC ---
[employer] PROGRESS NOTE Chief Complaint Chief Complaint left forearm cellulitis tobacco use disorder anxiety disorder. History of Present Illness History of Present Illness Patient seen and examined I tereso Around her cellulitis in her left arm And definitely appears to be growing Vitals Vitals Vital Signs Date Time Temp Pulse Resp B/P (MAP) Pulse Ox O2 Delivery O2 Flow Rate FiO2 03/21/19 08:00 Room Air 03/21/19 07:00 98.2 65 18 98/52 (67) 98 98.2 Physical Exam Physical Exam Gen.: well-developed well-nourished in no apparent distress Head: Normal shape atraumatic Eyes: Pupils equal reactive to light and accommodation, normal conjunctivae and lids Ears: Normal shape Nose: Normal shape no trauma Mouth: No exudates of the back of throat no thrush no lesions Neck: Supple no JVD no carotid bruit or lymphadenopathy no thyromegaly Chest: Lungs clear to auscultation with good inspiratory effort no crackles rales or rhonchi Cardiovascular: S1-S2 regular rhythm no murmurs gallops or rubs Abdomen: Bowel sounds present soft nontender no hepatosplenomegaly appreciated sign Extremities: No clubbing no cyanosis no edema peripheral pulses palpated bilaterally Neurological: Alert awake oriented in person time place and situation, cranial nerves II through XII intact, no motor or sensory deficits appreciated Psych: Appropriate mood, cooperative General: Alert, Oriented X3, mild distress Abdomen: Normal bowel sounds, Soft Extremities: No cyanosis, Other (1+ edema left arm) Skin: Other (streaky cellulitis to left arm, marked, ) Review of Systems Review of Systems Complains of pain Assessment and Plan Assessmemt and Plan Problems Medical Problems: (1) Cellulitis Status: Acute left forearm cellulitis tobacco use disorder anxiety disorder. Plan: Consult ID will continue with clindamycin do MRSA screen will start vanocmycin reassess int he am Comment Review of Relevant I have reviewed the following items antete (where applicable) has been applied. Labs Laboratory Tests Test 03/19/19 13:55 03/19/19 14:03 Urine Collection Type Unknown Urine Color Yellow Urine Clarity Cloudy Urine pH 7.5 Urine Specific [place] 1.025 Urine Protein 30 mg/dL (NEG-TRACE) Urine Glucose (UA) Negative mg/dL (NEG) Urine Ketones (Stick) Negative mg/dL (NEG) Urine Blood Moderate (NEG) Urine Nitrite Negative (NEG) Urine Bilirubin Negative (NEG) Urine Urobilinogen Dipstick 1.0 mg/dL (0.2 mg/dL) Urine Leukocyte Esterase Negative (NEG) Urine RBC 11-20 /HPF (0-2) Urine WBC Rare /HPF (0-4) Urine Squamous Epithelial Cells Mod /LPF Urine Bacteria Few /HPF (0-FEW) Urine Mucus Marked /LPF White Blood Count 11.1 x10^3/uL (4.0-11.0) Red Blood Count 5.10 x10^6/uL (3.50-5.40) Hemoglobin 12.7 g/dL (12.0-15.5) Hematocrit 40.1 % (36.0-47.0) Mean Corpuscular Volume 79 fL (79-100) Mean Corpuscular Hemoglobin 25 pg (25-35) Mean Corpuscular Hemoglobin Concent 32 g/dL (31-37) Red Cell Distribution Width 15.7 % (11.5-14.5) Platelet Count 451 x10^3/uL (140-400) Neutrophils (%) (Auto) 79 % (31-73) Lymphocytes (%) (Auto) 12 % (24-48) Monocytes (%) (Auto) 7 % (0-9) Eosinophils (%) (Auto) 1 % (0-3) Basophils (%) (Auto) 1 % (0-3) Neutrophils # (Auto) 8.8 x10^3uL (1.8-7.7) Lymphocytes # (Auto) 1.3 x10^3/uL (1.0-4.8) Monocytes # (Auto) 0.8 x10^3/uL (0.0-1.1) Eosinophils # (Auto) 0.1 x10^3/uL (0.0-0.7) Basophils # (Auto) 0.1 x10^3/uL (0.0-0.2) Bedside Urine HCG, Qualitative Hcg negative (Negative) Sodium Level 142 mmol/L (136-145) Potassium Level 4.2 mmol/L (3.5-5.1) Chloride Level 103 mmol/L (98-107) Carbon Dioxide Level 27 mmol/L (21-32) Anion Gap 12 (6-14) Blood Urea Nitrogen 15 mg/dL (7-20) Creatinine 1.0 mg/dL (0.6-1.0) Estimated GFR (Cockcroft-Gault) 68.1 BUN/Creatinine Ratio 15 (6-20) Glucose Level 92 mg/dL (70-99) Lactic Acid Level 0.9 mmol/L (0.4-2.0) Calcium Level 9.7 mg/dL (8.5-10.1) Total Bilirubin 0.3 mg/dL (0.2-1.0) Aspartate Amino Transf (AST/SGOT) 19 U/L (15-37) Alanine Aminotransferase (ALT/SGPT) 22 U/L (14-59) Alkaline Phosphatase 59 U/L (46-116) Total Protein 7.8 g/dL (6.4-8.2) Albumin 4.1 g/dL (3.4-5.0) Albumin/Globulin Ratio 1.1 (1.0-1.7) Microbiology 03/19/19 Blood Culture - Preliminary, Resulted NO GROWTH AFTER 1 DAY Medications Current Medications Ondansetron HCl (Zofran) 4 mg 1X ONCE IV Last administered on 03/19/19at 14:16; Start 03/19/19 at 14:00; Stop 03/19/19 at 14:01; Status DC Fentanyl Citrate (Fentanyl 2ml Vial) 50 mcg 1X ONCE IV Last administered on 03/19/19at 14:16; Start 03/19/19 at 14:00; Stop 03/19/19 at 14:01; Status DC Clindamycin Phosphate 50 ml @ 100 mls/hr 1X ONCE IV Last administered on 03/19/19at 14:35; Start 03/19/19 at 14:00; Stop 03/19/19 at 14:29; Status DC Sodium Chloride 1,000 ml @ 1,000 mls/hr 1X ONCE IV Last administered on 03/19/19at 14:15; Start 03/19/19 at 14:00; Stop 03/19/19 at 14:59; Status DC Ondansetron HCl (Zofran) 4 mg PRN Q8HRS PRN IV NAUSEA/VOMITING; Start 03/19/19 at 14:45; Stop 03/20/19 at 14:44; Status DC Fentanyl Citrate (Fentanyl 2ml Vial) 50 mcg PRN Q1HR PRN IV PAIN Last adm inistered on 5/29/19at 08:39; Start 03/19/19 at 14:45; Stop 03/20/19 at 14:44; Status DC Cetirizine HCl (ZyrTEC) 10 mg DAILY PO Last administered on 03/21/19 08:15; Start 03/20/19 at 09:00 Docusate Sodium (Colace) 100 mg PRN BID PRN PO CONSTIPATION 1ST CHOICE; Start 03/19/19 at 17:15 Oxycodone/ Acetaminophen (Percocet 5/325) 1 tab PRN Q4HRS PRN PO MODERATE TO SEVERE PAIN Last administered on 03/20/19 10:46; Start 03/19/19 at 17:15 Ascorbic Acid (Vitamin C) 500 mg BID PO Last administered on 03/21/19 08:15; Start 03/19/19 at 21:00 Vitamin D (Vitamin D3) 2,000 unit DAILY PO Last administered on 03/21/19 08:16; Start 03/20/19 at 09:00 Non-Formulary Medication (Ibuprofen ) 800 mg PRN Q8HRS PRN PO INFLAMMATION/PAIN PREVENTION; Start 03/19/19 at 17:15; Stop 03/19/19 at 17:21; Status DC Multivitamins (Thera M Plus) 1 tab DAILY PO Last administered on 03/21/19 08:15; Start 03/20/19 at 09:00 Ibuprofen (Motrin) 800 mg PRN Q8HRS PRN PO INFLAMMATION/PAIN Last administered on 03/21/19 08:40; Start 03/19/19 at 17:30 Duloxetine HCl (Cymbalta) 90 mg DAILY PO Last administered on 03/21/19 08:15; Start 03/20/19 at 09:00 Alprazolam (Xanax) 0.5 mg PRN Q8HRS PRN PO ANXIETY / AGITATION; Start 03/19/19 at 18:00 Enoxaparin Sodium (Lovenox Per Pharmacy Prophylaxis Dosing) 1 each PRN DAILY PRN MC SEE COMMENTS; Start 03/19/19 at 19:45 Enoxaparin Sodium (Lovenox 40mg Syringe) 40 mg Q24H SQ Last administered on 03/20/19at 20:50; Start 03/19/19 at 21:00 Nicotine Polacrilex (Nicorette Gum) 1 each PRN Q1HR PRN BC SMOKING CESSATION; Start 03/19/19 at 19:45 Clindamycin Phosphate 50 ml @ 100 mls/hr Q8HRS IV Last administered on 03/21/19at 05:53; Start 03/20/19 at 10:00 Vancomycin HCl (Vanco Per Pharmacy) 1 each PRN DAILY PRN MC SEE COMMENTS Last administered on 03/20/19at 12:26; Start 03/20/19 at 10:00 Vancomycin HCl 1.75 gm/Sodium Chloride 500 ml @ 250 mls/hr 1X ONCE IV Last administered on 03/20/19at 10:48; Start 03/20/19 at 10:30; Stop 03/20/19 at 12:29; Status DC Vancomycin HCl 1 gm/Sodium Chloride 250 ml @ 250 mls/hr Q12H IV Last administered on 03/21/19at 11:28; Start 03/20/19 at 23:00 Vancomycin HCl (Vancomycin Trough Level) 1 each 1X ONCE MC ; Start 03/21/19 at 22:30; Stop 03/21/19 at 22:31 Lactobacillus Rhamnosus (Culturelle) 1 cap BID PO Last administered on at 08:15; Start 03/20/19 at 21:00 Active Scripts Active Ibuprofen 800 Mg Tablet 800 Mg PO PRN Q8HRS PRN Macrobid 100 Mg Capsule (Nitrofurantoin Monohyd/M-Cryst) 100 Mg Capsule 1 Cap PO BID Percocet 5-325 Mg Tablet (Oxycodone/Acetaminophen) 1 Each Tablet 1-2 Tab PO Q4-6HRS Colace (Docusate Sodium) 100 Mg Capsule 100 Mg PO PRN BID PRN Reported Multivitamins (Multivitamin) 1 Each Tablet 1 Tab PO DAILY Vitamin C (Ascorbic Acid) 500 Mg Tab.chew 500 Mg PO BID Zyrtec (Cetirizine Hcl) 10 Mg Tablet 1 Tab PO DAILY Vitamin D3 (Cholecalciferol (Vitamin D3)) 2,000 Unit Tablet 2,000 Unit PO DAILY Formula ( Vits W-Ca,Fe,Fa(<1MG)) 1 Each Tablet 1 Each PO Vitals/I & O Vital Sign - Last 24 Hours 03/20/19 03/20/19 03/20/19 03/20/19 15:00 19:00 19:00 23:00 Temp 97.8 98.2 98.0 97.8 98.2 98.0 Pulse 79 70 74 Resp 18 18 18 B/P (MAP) 101/50 (67) 107/55 (72) 93/53 (66) Pulse Ox 97 98 98 O2 Delivery Room Air Room Air Room Air Room Air 03/21/19 03/21/19 03/21/19 03:00 07:00 08:00 Temp 98.0 98.2 98.0 98.2 Pulse 71 65 Resp 18 18 B/P (MAP) 115/59 (77) 98/52 (67) Pulse Ox 96 98 O2 Delivery Room Air Room Air Room Air Intake and Output 03/20/19 03/20/19 03/21/19 15:00 23:00 07:00 Intake Total 120 ml 710 ml 610 ml Balance 120 ml 710 ml 610 ml GENIA HOUSTON III DO March 21, 2019 12:28
--- NOTE | 2019-03-21 12:57 | PDOC ---
Infectious Disease Note Vital Signs: Vital Signs Vital Signs Date Time Temp Pulse Resp B/P (MAP) Pulse Ox O2 Delivery O2 Flow Rate FiO2 03/21/19 08:00 Room Air 03/21/19 07:00 98.2 65 18 98/52 (67) 98 98.2 Physical Exam: PHYSICAL EXAM Gen.: well-developed well-nourished in no apparent distress Head: Normal shape atraumatic Eyes: Pupils equal reactive to light and accommodation, normal conjunctivae and lids Ears: Normal shape Nose: Normal shape no trauma Mouth: No exudates of the back of throat no thrush no lesions Neck: Supple no JVD no carotid bruit or lymphadenopathy no thyromegaly Chest: Lungs clear to auscultation with good inspiratory effort no crackles rales or rhonchi Cardiovascular: S1-S2 regular rhythm no murmurs gallops or rubs Abdomen: Bowel sounds present soft nontender no hepatosplenomegaly appreciated sign Extremities: No clubbing no cyanosis no edema peripheral pulses palpated bilaterally Neurological: Alert awake oriented in person time place and situation, cranial nerves II through XII intact, no motor or sensory deficits appreciated Psych: Appropriate mood, cooperative Medications: Inpatient Meds: Current Medications Medications (Trade) Dose Ordered Sig/[place] Start Time Stop Time Status Last Admin Dose Admin Alprazolam (Xanax) 0.5 mg PRN Q8HRS PRN 03/19/19 18:00 Ascorbic Acid (Vitamin C) 500 mg BID 03/19/19 21:00 03/21/19 08:15 500 MG Ceftriaxone Sodium (Rocephin) 2 gm Q24H 03/21/19 14:00 Cetirizine HCl (ZyrTEC) 10 mg DAILY 03/20/19 09:00 03/21/19 08:15 10 MG Clindamycin Phosphate 50 ml @ 100 mls/hr Q8HRS 03/20/19 10:00 03/21/19 12:47 DC 03/21/19 05:53 100 MLS/HR Daptomycin 280 mg/ Sodium Chloride 50 ml @ 100 mls/hr Q24H 03/21/19 13:00 Docusate Sodium (Colace) 100 mg PRN BID PRN 03/19/19 17:15 Duloxetine HCl (Cymbalta) 90 mg DAILY 03/20/19 09:00 03/21/19 08:15 90 MG Enoxaparin Sodium (Lovenox 40mg Syringe) 40 mg Q24H 03/19/19 21:00 03/20/19 20:50 40 MG Enoxaparin Sodium (Lovenox Per Pharmacy Prophylaxis Dosing) 1 each PRN DAILY PRN 03/19/19 19:45 Fentanyl Citrate (Fentanyl 2ml Vial) 50 mcg PRN Q1HR PRN 03/19/19 14:45 03/20/19 14:44 DC 03/20/19 08:39 50 MCG Ibuprofen (Motrin) 800 mg PRN Q8HRS PRN 03/19/19 17:30 03/21/19 08:40 800 MG Lactobacillus Rhamnosus (Culturelle) 1 cap BID 03/20/19 21:00 03/21/19 08:15 1 CAP Linezolid (Zyvox) 600 mg BID 03/21/19 21:00 Multivitamins (Thera M Plus) 1 tab DAILY 03/20/19 09:00 03/21/19 08:15 1 TAB Nicotine Polacrilex (Nicorette Gum) 1 each PRN Q1HR PRN 03/19/19 19:45 Non-Formulary Medication (Ibuprofen ) 800 mg PRN Q8HRS PRN 03/19/19 17:15 03/19/19 17:21 DC Ondansetron HCl (Zofran) 4 mg PRN Q8HRS PRN 03/19/19 14:45 03/20/19 14:44 DC Oxycodone/ Acetaminophen (Percocet 5/325) 1 tab PRN Q4HRS PRN 03/19/19 17:15 03/20/19 10:46 1 TAB Sodium Chloride 1,000 ml @ 1,000 mls/hr 1X ONCE 03/19/19 14:00 03/19/19 14:59 DC 03/19/19 14:15 1,000 MLS/HR Vancomycin HCl (Vanco Per Pharmacy) 1 each PRN DAILY PRN 03/20/19 10:00 03/20/19 12:26 1 EACH Vancomycin HCl (Vancomycin Trough Level) 1 each 1X ONCE 03/21/19 22:30 03/21/19 22:31 Vancomycin HCl 1.75 gm/Sodium Chloride 500 ml @ 250 mls/hr 1X ONCE 03/20/19 10:30 03/20/19 12:29 DC 03/20/19 10:48 250 MLS/HR Vancomycin HCl 1 gm/Sodium Chloride 250 ml @ 250 mls/hr Q12H 03/20/19 23:00 03/21/19 12:47 DC 03/21/19 11:28 250 MLS/HR Vitamin D (Vitamin D3) 2,000 unit DAILY 03/20/19 09:00 03/21/19 08:16 2,000 UNIT Objective: Assessment: LUE cellulitis Seasonal allergies Depression Plan: Plan of Care dapto few doses of zyvox elevate LUE Monitor area closely f/u cults and labs in am Thank you [id number] ELLE PINO MD March 21, 2019 12:57
[2019-03-21] MEDS: DAPTOmycin (GENERIC) IVPB 280 MG in IV NORMAL SALINE 50ML 50 ML IV SCH (13:42)
--- NOTE | 2019-03-21 14:11 | NUR ---
SW following for discharge planning. Discussed with RN, pt is from home with family. ID following pt and no dc recommendations/SW needs noted at this time.
[2019-03-21] MEDS: cefTRIAXone IV Push 2 GM VIAL. IVP SCH (14:37)
[2019-03-21 15:00] VITALS: BP_SYST 118; BP_SYST 96; BP_DIAS 55; BP_DIAS 67
[2019-03-21 19:00] VITALS: BP 105/55
[2019-03-21] MEDS: LINEZOLID 600 MG TABLET PO SCH (20:59)
[2019-03-21] MEDS: ENOXAPARIN 40 MG/0.4 ML SYRINGE. SQ SCH (20:59)
[2019-03-21 23:03] VITALS: BP 106/48
[2019-03-22 03:10] VITALS: BP 98/55
--- NOTE | 2019-03-22 06:43 | CONS ---
DATE OF CONSULTATION: 03/21/2019 REFERRING PHYSICIAN: Dr. Eddy. REASON FOR CONSULTATION: Unresolving left upper extremity cellulitis. HISTORY OF PRESENT ILLNESS: A 23-year-old female presented to the ER on 03/19/2019 with redness, swelling of the left forearm, which started last Monday when she woke up from sleep noticing redness and swelling with pain. She went to urgent care on Monday when it got worse. She received a shot of Rocephin and was given Bactrim, which she started on Monday. She continued to get worse, so presented to the ER on Monday when she got admitted to the hospital. White count was 11.1 with platelets of 451. CMP was within normal limits. UA was negative. Urine beta hCG was negative. Blood cultures were done, which are negative till now. The patient was started on clindamycin. Today, she has further worsening of her swelling, so vancomycin was added to her regimen. ID consult has been requested for further antibiotic management. PAST MEDICAL HISTORY: Seasonal allergies, depression and anxiety. SOCIAL HISTORY: Smoking present, ETOH social. No heavy alcohol use. Denies any IVDU. Works in retail, has 2 children. ALLERGIES: MORPHINE. CURRENT MEDICATION: Clindamycin and IV vancomycin. PHYSICAL EXAMINATION: VITAL SIGNS: Temperature 98.2, pulse 65, respiratory rate 18, blood pressure 119/52, oxygen saturation 98% on room air. GENERAL: Alert, oriented x 3 female, lying in bed comfortably, in no acute distress. HEENT: Normocephalic, atraumatic, anicteric. No thrush. Oral mucosa moist. NECK: Supple, no JVD, no thyromegaly. LUNGS: Clear bilaterally. No wheezing. HEART: S1, S2. No gallops, murmurs or rubs. ABDOMEN: Soft, nontender, nondistended. No rebound, no guarding. EXTREMITIES: No edema, no cyanosis, no clubbing. DERMATOLOGIC: Warm, dry. No generalized rash except for diffuse erythematous streaking rash over the left forearm and going up the arm and has spread beyond her previous markings. MUSCULOSKELETAL: No joint swelling, no decreased range of motion. PSYCHIATRIC: Cooperative, appropriate mood and affect. LABORATORY DATA: WBC 11.1, hemoglobin 12.7, hematocrit 40.1, platelets 451, neutrophil 8.8, neutrophil percent 79. LFTs within normal limits. CMP within normal limits. Lactate 0.9. UA negative. Beta hCG negative. MICRO: Blood cultures negative. IMAGING: None. IMPRESSION: 1. Worsening left upper extremity cellulitis despite IM Rocephin and clindamycin. 2. Depression/anxiety, on duloxetine. 3. Seasonal allergies. 4. Mild leukocytosis, likely from above. RECOMMENDATIONS: 1. Discontinue IV vancomycin and clindamycin. 2. Restart Rocephin. 3. Add daptomycin. 4. Add Zyvox for a couple of doses. 5. Elevate left upper extremity. 6. Follow up cultures and lab in a.m. 7. Continue supportive care. Thank you, Dr. Eddy, for consulting Infectious Disease to participate in this patient's care. We will follow along with you. Discussed with nursing staff. ELLE PINO MD DR: SHILPI/patricia JOB#: [id number] / [id number]
[2019-03-22 07:00] VITALS: BP 98/57
--- NOTE | 2019-03-22 07:25 | NUR ---
Charting for rounds at 0722 entered on wrong pt, this pt is NOT on O2, is NOT planning to DC to [facility]. Charting on second patient corrected.
[2019-03-22] MEDS ORDERED: diphenhydrAMINE HCL 25 MG CAPSULE PO PRN (08:15)
[2019-03-22] MEDS: LACTOBACILLUS RHAMNOSUS GG 1 CAPSULE. PO SCH (08:30)
[2019-03-22] MEDS: CHOLECALCIFEROL (VITAMIN D3) 1,000 UNIT TABLET PO SCH (08:30)
[2019-03-22] MEDS: DULoxetine HCL 30 MG CAPSULE.DR PO SCH (08:30)
[2019-03-22] MEDS: CETIRIZINE HCL 10 MG TABLET. PO SCH (08:30)
[2019-03-22] MEDS: LINEZOLID 600 MG TABLET PO SCH (08:30)
[2019-03-22] MEDS: ASCORBIC ACID 500 MG TABLET PO SCH (08:31)
[2019-03-22] MEDS: MULTIVITAMIN with MINERAL TABLET. PO SCH (08:36)
[2019-03-22 10:10] LABS: BASO % 1 % (0-3); EOS # 0.2 x10^3/uL (0.0-0.7); EOS % 3 % (0-3); HEMATOCRIT 34.1 % (36.0-47.0); HEMOGLOBIN 11.1 g/dL (12.0-15.5); LYMPH # 0.8 x10^3/uL (1.0-4.8); LYMPH % 14 % (24-48); MEAN CORPUSCULAR HEMOGLOBIN 25 pg (25-35); MEAN CORPUSCULAR HGB CONC 33 g/dL (31-37); MEAN CORPUSCULAR VOLUME 78 fL (79-100); MONO # 0.5 x10^3/uL (0.0-1.1); MONO % 9 % (0-9); NEUT # 4.2 x10^3uL (1.8-7.7); NEUT % 74 % (31-73); PLATELET COUNT 356 x10^3/uL (140-400); RED CELL DISTRIBUTION WIDTH 15.4 % (11.5-14.5); WHITE BLOOD COUNT 5.7 x10^3/uL (4.0-11.0)
[2019-03-22 10:32] LABS: CALCIUM 8.4 mg/dL (8.5-10.1); CREATININE 0.6 mg/dL (0.6-1.0); GFR 122.8; POTASSIUM 4.4 mmol/L (3.5-5.1)
--- NOTE | 2019-03-22 10:32 | PDOC ---
Infectious Disease Note Subjective: Subjective Pt still has swelling of the LUE it is still spreading now has itching Some central clearing no f/c/n/v/d/abdo pain/sob ROS: ROS Negative except for above. Vital Signs: Vital Signs Vital Signs Date Time Temp Pulse Resp B/P (MAP) Pulse Ox O2 Delivery O2 Flow Rate FiO2 03/22/19 07:24 Room Air 03/22/19 07:00 97.9 69 17 98/57 (71) 98 97.9 Physical Exam: PHYSICAL EXAM Gen.: well-developed well-nourished in no apparent distress Head: Normal shape atraumatic Eyes: Pupils equal reactive to light and accommodation, normal conjunctivae and lids Ears: Normal shape Nose: Normal shape no trauma Mouth: No exudates of the back of throat no thrush no lesions Neck: Supple no JVD no carotid bruit or lymphadenopathy no thyromegaly Chest: Lungs clear to auscultation with good inspiratory effort no crackles rales or rhonchi Cardiovascular: S1-S2 regular rhythm no murmurs gallops or rubs Abdomen: Bowel sounds present soft nontender no hepatosplenomegaly appreciated sign Extremities: No clubbing no cyanosis no edema peripheral pulses palpated bi laterally Neurological: Alert awake oriented in person time place and situation, cranial nerves II through XII intact, no motor or sensory deficits appreciated Psych: Appropriate mood, cooperative Medications: Inpatient Meds: Current Medications Medications (Trade) Dose Ordered Sig/[place] Start Time Stop Time Status Last Admin Dose Admin Alprazolam (Xanax) 0.5 mg PRN Q8HRS PRN 03/19/19 18:00 Ascorbic Acid (Vitamin C) 500 mg BID 03/19/19 21:00 03/22/19 08:31 500 MG Ceftriaxone Sodium (Rocephin) 2 gm Q24H 03/21/19 14:00 03/21/19 14:37 2 GM Cetirizine HCl (ZyrTEC) 10 mg DAILY 03/20/19 09:00 03/22/19 08:30 10 MG Clindamycin Phosphate 50 ml @ 100 mls/hr Q8HRS 03/20/19 10:00 03/21/19 12:47 DC 03/21/19 05:53 100 MLS/HR Daptomycin 280 mg/ Sodium Chloride 50 ml @ 100 mls/hr Q24H 03/21/19 13:00 03/21/19 13:42 100 MLS/HR Diphenhydramine HCl (Benadryl) 25 mg PRN Q6HRS PRN 03/22/19 08:15 03/22/19 08:30 25 MG Docusate Sodium (Colace) 100 mg PRN BID PRN 03/19/19 17:15 Duloxetine HCl (Cymbalta) 90 mg DAILY 03/20/19 09:00 03/22/19 08:30 90 MG Enoxaparin Sodium (Lovenox 40mg Syringe) 40 mg Q24H 03/19/19 21:00 03/21/19 20:59 40 MG Enoxaparin Sodium (Lovenox Per Pharmacy Prophylaxis Dosing) 1 each PRN DAILY PRN 03/19/19 19:45 Fentanyl Citrate (Fentanyl 2ml Vial) 50 mcg PRN Q1HR PRN 03/19/19 14:45 03/20/19 14:44 DC 03/20/19 08:39 50 MCG Ibuprofen (Motrin) 800 mg PRN Q8HRS PRN 03/19/19 17:30 03/21/19 08:40 800 MG Lactobacillus Rhamnosus (Culturelle) 1 cap BID 03/20/19 21:00 03/22/19 08:30 1 CAP Linezolid (Zyvox) 600 mg BID 03/21/19 21:00 03/22/19 08:30 600 MG Multivitamins (Thera M Plus) 1 tab DAILY 03/20/19 09:00 03/22/19 08:36 1 TAB Nicotine Polacrilex (Nicorette Gum) 1 each PRN Q1HR PRN 03/19/19 19:45 Non-Formulary Medication (Ibuprofen ) 800 mg PRN Q8HRS PRN 03/19/19 17:15 03/19/19 17:21 DC Ondansetron HCl (Zofran) 4 mg PRN Q8HRS PRN 03/19/19 14:45 03/20/19 14:44 DC Oxycodone/ Acetaminophen (Percocet 5325) 1 tab PRN Q4HRS PRN 03/19/19 17:15 03/20/19 10:46 1 TAB Sodium Chloride 1,000 ml @ 1,000 mls/hr 1X ONCE 03/19/19 14:00 03/19/19 14:59 DC 03/19/19 14:15 1,000 MLS/HR Vancomycin HCl (Vanco Per Pharmacy) 1 each PRN DAILY PRN 03/20/19 10:00 03/21/19 13:01 DC 03/20/19 12:26 1 EACH Vancomycin HCl (Vancomycin Trough Level) 1 each 1X ONCE 03/21/19 22:30 03/21/19 22:30 DC Vancomycin HCl 1.75 gm/Sodium Chloride 500 ml @ 250 mls/hr 1X ONCE 03/20/19 10:30 03/20/19 12:29 DC 03/20/19 10:48 250 MLS/HR Vancomycin HCl 1 gm/Sodium Chloride 250 ml @ 250 mls/hr Q12H 03/20/19 23:00 03/21/19 12:47 DC 03/21/19 11:28 250 MLS/HR Vitamin D (Vitamin D3) 2,000 unit DAILY 03/20/19 09:00 03/22/19 08:30 2,000 UNIT Labs: Lab Laboratory Tests Test 03/22/19 09:48 White Blood Count 5.7 x10^3/uL (4.0-11.0) Red Blood Count 4.40 x10^6/uL (3.50-5.40) Hemoglobin 11.1 g/dL (12.0-15.5) Hematocrit 34.1 % (36.0-47.0) Mean Corpuscular Volume 78 fL (79-100) Mean Corpuscular Hemoglobin 25 pg (25-35) Mean Corpuscular Hemoglobin Concent 33 g/dL (31-37) Red Cell Distribution Width 15.4 % (11.5-14.5) Platelet Count 356 x10^3/uL (140-400) Neutrophils (%) (Auto) 74 % (31-73) Lymphocytes (%) (Auto) 14 % (24-48) Monocytes (%) (Auto) 9 % (0-9) Eosinophils (%) (Auto) 3 % (0-3) Basophils (%) (Auto) 1 % (0-3) Neutrophils # (Auto) 4.2 x10^3uL (1.8-7.7) Lymphocytes # (Auto) 0.8 x10^3/uL (1.0-4.8) Monocytes # (Auto) 0.5 x10^3/uL (0.0-1.1) Eosinophils # (Auto) 0.2 x10^3/uL (0.0-0.7) Basophils # (Auto) 0.0 x10^3/uL (0.0-0.2) Objective: Assessment: LUE cellulitis Seasonal allergies Depression Plan: Plan of Care dapto and ceftriaxone few doses of zyvox elevate LUE Monitor area closely f/u cults and labs in am ELLE PINO MD March 22, 2019 10:32
[2019-03-22 11:00] VITALS: BP 111/46
[2019-03-22] MEDS: DAPTOmycin (GENERIC) IVPB 280 MG in IV NORMAL SALINE 50ML 50 ML IV SCH (13:42)
[2019-03-22] MEDS ORDERED: LINE600T PO (13:49)
--- NOTE | 2019-03-22 14:27 | PDOC3 ---
Discharge Summary Visit Information Date of Admission: March 19, 2019 Date of Discharge: March 22, 2019 Admitting Diagnosis: cellulitis Final Diagnosis Problems Medical Problems: (1) Cellulitis Status: Acute Brief Hospital Course Allergies Allergies Coded Allergies Type Severity Reaction Last Updated Verified morphine Adverse Reaction Mild vomiting 03/22/19 Yes Vital Signs Vital Signs Date Time Temp Pulse Resp B/P (MAP) Pulse Ox O2 Delivery O2 Flow Rate FiO2 03/22/19 11:00 98.3 76 17 111/46 (67) 99 Room Air 98.3 Lab Results Laboratory Tests Test 03/20/19 17:05 03/22/19 09:48 Nasal Screen MRSA (PCR) Negative (Negative) White Blood Count 5.7 x10^3/uL (4.0-11.0) Red Blood Count 4.40 x10^6/uL (3.50-5.40) Hemoglobin 11.1 g/dL (12.0-15.5) Hematocrit 34.1 % (36.0-47.0) Mean Corpuscular Volume 78 fL (79-100) Mean Corpuscular Hemoglobin 25 pg (25-35) Mean Corpuscular Hemoglobin Concent 33 g/dL (31-37) Red Cell Distribution Width 15.4 % (11.5-14.5) Platelet Count 356 x10^3/uL (140-400) Neutrophils (%) (Auto) 74 % (31-73) Lymphocytes (%) (Auto) 14 % (24-48) Monocytes (%) (Auto) 9 % (0-9) Eosinophils (%) (Auto) 3 % (0-3) Basophils (%) (Auto) 1 % (0-3) Neutrophils # (Auto) 4.2 x10^3uL (1.8-7.7) Lymphocytes # (Auto) 0.8 x10^3/uL (1.0-4.8) Monocytes # (Auto) 0.5 x10^3/uL (0.0-1.1) Eosinophils # (Auto) 0.2 x10^3/uL (0.0-0.7) Basophils # (Auto) 0.0 x10^3/uL (0.0-0.2) Sodium Level 142 mmol/L (136-145) Potassium Level 4.4 mmol/L (3.5-5.1) Chloride Level 107 mmol/L (98-107) Carbon Dioxide Level 27 mmol/L (21-32) Anion Gap 8 (6-14) Blood Urea Nitrogen 13 mg/dL (7-20) Creatinine 0.6 mg/dL (0.6-1.0) Estimated GFR (Cockcroft-Gault) 122.8 Glucose Level 81 mg/dL (70-99) Calcium Level 8.4 mg/dL (8.5-10.1) Laboratory Tests Test 03/22/19 09:48 White Blood Count 5.7 x10^3/uL (4.0-11.0) Red Blood Count 4.40 x10^6/uL (3.50-5.40) Hemoglobin 11.1 g/dL (12.0-15.5) Hematocrit 34.1 % (36.0-47.0) Mean Corpuscular Volume 78 fL (79-100) Mean Corpuscular Hemoglobin 25 pg (25-35) Mean Corpuscular Hemoglobin Concent 33 g/dL (31-37) Red Cell Distribution Width 15.4 % (11.5-14.5) Platelet Count 356 x10^3/uL (140-400) Neutrophils (%) (Auto) 74 % (31-73) Lymphocytes (%) (Auto) 14 % (24-48) Monocytes (%) (Auto) 9 % (0-9) Eosinophils (%) (Auto) 3 % (0-3) Basophils (%) (Auto) 1 % (0-3) Neutrophils # (Auto) 4.2 x10^3uL (1.8-7.7) Lymphocytes # (Auto) 0.8 x10^3/uL (1.0-4.8) Monocytes # (Auto) 0.5 x10^3/uL (0.0-1.1) Eosinophils # (Auto) 0.2 x10^3/uL (0.0-0.7) Basophils # (Auto) 0.0 x10^3/uL (0.0-0.2) Sodium Level 142 mmol/L (136-145) Potassium Level 4.4 mmol/L (3.5-5.1) Chloride Level 107 mmol/L (98-107) Carbon Dioxide Level 27 mmol/L (21-32) Anion Gap 8 (6-14) Blood Urea Nitrogen 13 mg/dL (7-20) Creatinine 0.6 mg/dL (0.6-1.0) Estimated GFR (Cockcroft-Gault) 122.8 Glucose Level 81 mg/dL (70-99) Calcium Level 8.4 mg/dL (8.5-10.1) Brief Hospital Course Ms. Carter, is a 23 year old female admit from ER with acute redness and swelling of her left forearm. 4 days prior she woke up with a small spot on her arm, where she feels like she got a bug bite when sleeping, urgent care on Monday started her on Bactrim - and the pain has gotten worse with swelling and streaking up her left upper arm. [pain was 6/10, better after meds given she works at [employer] up the street. Patient was started on clindamycin and vancomycin initially, she continued to have spread of her cellulitis. ID was consulted and switched her antibiotics to Zyvox and also had a dose of Daptomycin. Patient has tolerated the oral formulation well and is in no apparent distress, patient understands the signs and symptoms of alarm prior to discharge. She will be following with her primary care physician in the outpatient setting. All concerns were addressed to the best of my abilities Discharge Information Condition at Discharge: Improved Follow Up: Weeks Disposition/Orders: D/C to Home Scheduled Ascorbic Acid (Vitamin C) 500 Mg Tab.chew, 500 MG PO BID, (Reported) Entered as Reported by: ESTEFANY DANIELS on 12/14/15750 Last Action: Converted on 03/19/191713 by ANGELICA PEDERSON Cetirizine Hcl (Zyrtec) 10 Mg Tablet, 1 TAB PO DAILY, #30 Ref 2 (Reported) Entered as Reported by: ESTEFANY DANIELS on 12/14/15750 Last Action: Continued on 03/19/191713 by ANGELICA PEDERSON Cholecalciferol (Vitamin D3) (Vitamin D3) 2,000 Unit Tablet, 2,000 UNIT PO DAILY, (Reported) Entered as Reported by: ESTEFANY DANIELS on 12/14/15749 Last Action: Converted on 03/19/191713 by ANGELICA PEDERSON Linezolid (Zyvox) 600 Mg Tablet, 600 MG PO BID for cellulitis for 7 Days, #14 Prescribed by: KELLY CONNORS MD on 03/22/19 1349 Multivitamin (Multivitamins) 1 Each Tablet, 1 TAB PO DAILY, #90 Ref 3 (Reported) Entered as Reported by: ESTEFANY DANIELS on 12/14/15 0752 Last Action: Converted on 03/19/191713 by ANGELICA PEDERSON Nitrofurantoin Monohyd/M-Cryst (Macrobid 100 Mg Capsule) 100 Mg Capsule, 1 CAP PO BID, #14 Prescribed by: KEVIN SINGLETARY on 10/17/17 1436 Last Action: HELD on 03/19/191713 by ANGELICA PEDERSON Oxycodone/Apap 5-325 (Percocet 5-325 Mg Tablet ) 1 Each Tablet, 1-2 TAB PO Q4- 6HRS, #40 Ref 0 Prescribed by: RUMA FELIX on 12/17/15 104 Last Action: Continued on 03/19/191713 by ANGELICA PEDERSON Scheduled PRN Docusate Sodium (Colace) 100 Mg Capsule, 100 MG PO PRN BID PRN for CONSTIPATION 1ST CHOICE, #60 Ref 1 Prescribed by: RUMA FELIX on 12/17/15 1045 Last Action: Continued on 03/19/191713 by ANGELICA PEDERSON Ibuprofen (Ibuprofen) 800 Mg Tablet, 800 MG PO PRN Q8HRS PRN for INFLAMMATION/PAIN PREVENTION, #30 Ref 1 Prescribed by: RUMA FELIX on 04/17/181718 Last Action: Converted on 03/19/191713 by ANGELICA PEDERSON Miscellaneous Medications Vits W-Ca,Fe,Fa(<1MG) ( Formula) 1 Each Tablet, 1 EACH PO, (Reported) Entered as Reported by: ESTEFANY DANIELS on 12/14/15 0750 Last Action: HELD on 03/19/191713 by KELLY RIZZO MD March 22, 2019 14:27
[2019-03-22] MEDS: cefTRIAXone IV Push 2 GM VIAL. IVP SCH (14:30)
--- NOTE | 2019-03-22 15:15 | NUR ---
Discharge Note: ALVARO ALLAN MARION Discharge instructions and discharge home medications reviewed with Patient and a copy given. All questions have been answered and understanding verbalized. The following instructions and handouts were given: Spider Bite, Cellulitis. Discontinued lines and drains: R forearm/wrist peripheral IV discontinued, no bleeding or bruising, catheter tip intact. Patient discharged to home for self-care, fup appt set w/Dr. Alvarado 04/03@1400. Pt ambulated to personal vehicle w/this [facility]ha underwriter, no dizziness, no unsteadiness, pt stable.
== END 2019-03-22 15:15 | disposition home or self-care (01) | DRG 603 ==
LOC: ER 13:14 → 5 NORTH 14:17
PROVIDERS: ADMIT Internal Medicine; ATTEND Internal Medicine
DX: L03.114 Cellulitis of left upper limb (principal); F17.210 Nicotine dependence, cigarettes, uncomplicated; F32.9 Major depressive disorder, single episode, unspecified; F41.9 Anxiety disorder, unspecified; J30.2 Other seasonal allergic rhinitis; Z88.5 Allergy status to narcotic agent; Z79.899 Other long term (current) drug therapy
CPT/HCPCS: 36415; 80048; 80053; 81001; 81025; 83605; 85025; 87040; 87641; 96365; 96375; J0696; J0878; J1650; J2405; J3010; J3370; J3490; J7030; J7040; J7050; Q0163; 99285-25